=== PATIENT | female | born 1975 | race Caucasian/White ===

== ENCOUNTER 2017-10-15 17:55 | Emergency (ER) | payer OTHER ==
[~2017-10-15] VITALS: Ht 160 cm; Wt 152.0 kg
--- NOTE | ~2017-10-15 | EKG ---
[address] [place] [address] ELECTROCARDIOGRAM REPORT Name: MADIHA CERVANTES Room #: DEP JASSI Mora#: [id number] Admission: 10/15/17 Attend Phys: Discharge: 10/15/17 Date of : 77 Report #: [id number] THIS REPORT FOR: //name// [facility] ED Test Date: 2017-10-15 Test Time: 18:25:27 Pat Name: MADIHA CERVANTES Department: Room: Gender: F [employer] Machine Operator: RYLEY : 1975 Requested By: Ashly Doyle Order Number: [id number] MD: Suhas Domínguez Measurements Intervals [place] Rate: 65 P: 37 [place]: 151 QRS: -30 QRSD: 112 T: 12 QT: 399 QTc: 415 Interpretive Statements Sinus rhythm Borderline IVCD with LAD Consider anterior infarct No previous ECG available for comparison Electronically Signed On 10-15-2017 23:08:24 PROGRAM ANALYST by Suhas Domínguez [email or web address] <ELECTRONICALLY SIGNED> By: Suhas Domínguez MD 10/15/17 2308 1825 1825 Suhas Domínguez MD /ANITRA
[2017-10-15 19:21] LABS: ABSOLUTE NEUTROPHILS 6.9 thou/uL (1.4-8.2); BASOPHILS 1.3 % (0.0-2.0); EOSINOPHILS 1.2 % (0.0-3.0); HEMATOCRIT 44.8 % (37.0-47.0); HEMOGLOBIN 15.5 gm/dL (12.0-15.0); LYMPHOCYTES 30.3 % (24.0-44.0); MANUAL DIFF NO; MCH 30.9 pg (26.0-34.0); MCHC 34.5 g/dL (28.0-37.0); MCV 89.6 fL (80.0-100.0); MONOCYTES 4.8 % (1.0-8.0); PLATELET COUNT 258 thou/uL (150-400); POLYS 62.4 % (36.0-66.0); RDW 13.2 % (10.5-14.5)
[2017-10-15 19:48] LABS: ANION GAP 9 mmol/L (7-16); BUN 9 mg/dL (7-18); CALCIUM 9.9 mg/dL (8.5-10.1); CHLORIDE 106 mmol/L (98-107); CO2 26 mmol/L (21-32); CREATININE 0.7 mg/dL (0.6-1.0); GLUCOSE 128 mg/dL (74-106); POTASSIUM 4.1 mmol/L (3.5-5.1); SODIUM 141 mmol/L (136-145)
[2017-10-15 19:57] LABS: TROPONIN-I < 0.04 ng/mL (<0.06)
[2017-10-15] MEDS ORDERED: ANTIVERT25 MG PO (21:44)
[2017-10-15 21:59] VITALS: BP 125/59
== END 2017-10-15 22:00 | disposition home or self-care (01) ==
LOC: ER 17:55
PROVIDERS: Emergency Medicine
DX: R07.89 Other chest pain (principal); R42 Dizziness and giddiness; F10.99 Alcohol use, unspecified with unspecified alcohol-induced disorder

== ENCOUNTER 2017-12-29 20:55 | Emergency (ER) | payer OTHER ==
[~2017-12-29] VITALS: Ht 160 cm; Wt 152.9 kg
[~2017-12-29 20:55] MED LIST: ANTIVERT25 MG PO
[2017-12-29] MEDS ORDERED: UNICOMPLEX M TA1 TA1 PO (23:22)
[2017-12-29 23:56] LABS: HEMATOCRIT 43.8 % (37.0-47.0); HEMOGLOBIN 14.7 gm/dL (12.0-15.0); MCH 30.4 pg (26.0-34.0); MCHC 33.6 g/dL (28.0-37.0); MCV 90.3 fL (80.0-100.0); RBC 4.85 mil/uL (4.20-5.00); RDW 13.2 % (10.5-14.5); WBC 10.3 thou/uL (4.0-11.0)
[2017-12-30 00:15] LABS: CALCIUM 9.4 mg/dL (8.5-10.1); CREATININE 0.9 mg/dL (0.6-1.0); POTASSIUM 4.1 mmol/L (3.5-5.1)
[2017-12-30 00:20] LABS: ALBUMIN 3.7 g/dL (3.4-5.0); TOTAL BILIRUBIN 0.5 mg/dL (<0.1-1.0); TOTAL PROTEIN 6.9 g/dL (6.4-8.2)
[2017-12-30 01:19] LABS: URINE BILIRUBIN NEGATIVE (Negative); URINE BLOOD NEGATIVE (Negative); URINE CLARITY CLEAR; URINE COLOR YELLOW; URINE GLUCOSE-RANDOM* NEGATIVE (Negative); URINE KETONES NEGATIVE (Negative); URINE LEUKOCYTES-REFLEX NEGATIVE (Negative); URINE NITRITE-REFLEX NEGATIVE (Negative); URINE PROTEIN (DIPSTICK) NEGATIVE (Negative); URINE UROBILINOGEN 0.2 E.U./dl (0.2-1.0)
[2017-12-30] MEDS ORDERED: CIPRO500 M1 PO (01:20)
[2017-12-30] MEDS ORDERED: OXYCODONE HCL 55 MG PO (01:21)
[2017-12-30] MEDS ORDERED: ONDANSETRON HCL4 M2 PO (01:21)
== END 2017-12-30 01:43 | disposition home or self-care (01) ==
LOC: ER 20:55
PROVIDERS: Emergency Medicine
DX: K52.9 Noninfective gastroenteritis and colitis, unspecified (principal)

== ENCOUNTER → 2018-02-04 | Outpatient (CLI) | payer OTHER ==
[~2018-02-04] MED LIST changes: +CIPRO500 M1 PO; +ONDANSETRON HCL4 M2 PO; +OXYCODONE HCL 55 MG PO; +UNICOMPLEX M TA1 TA1 PO
== END ==
LOC: ULTRA 09:38
DX: K76.0 Fatty (change of) liver, not elsewhere classified (principal); N92.6 Irregular menstruation, unspecified